=== PATIENT | female | born 1965 | race Caucasian/White ===

== ENCOUNTER 2017-06-25 15:39 | Emergency (ER) | payer BC ==
[2017-06-25] MEDS ORDERED: methylPREDNISolone 125 MG* 2 ML VIAL IV ONE (16:00)
[2017-06-25] MEDS ORDERED: Famotidine IV* 10 MG/ML 2 ML (20 mg) IV ONE (16:00)
[2017-06-25] MEDS ORDERED: diPHENhydraMINE IV* 50 MG/ML 1 ml VIAL (BENADRYL) IV ONE (16:00)
[2017-06-25 18:02] VITALS: BP 151/80
[2017-06-25] MEDS ORDERED: predniSONE TAB* 20 MG PO ONE (18:08)
[2017-06-25] MEDS ORDERED: Famotidine TAB* 20 MG PO ONE (18:09)
--- NOTE | 2017-06-25 18:14 | ED ---
Vignesh Lagunas Rebecca, scribed for Blas Ordonez MD on 06/25/17 at 1605 . Allergic Reaction/Systemic - HPI Summary HPI Summary: Pt is a 52 y/o F who presents to ED c/o allergic reaction s/p wasp sting. Pt was stung on the R elbow and now c/o face and RUE hives. She took 25 mg Benadryl at 1430, [employer]. Denies difficulty breathing or throat tightening. Prior allergic reactions to stings, none of which have involved the airway. - History of Current Complaint Chief Complaint: EDAllergicReaction Time Seen by Provider: 06/25/17 15:58 Hx Obtained From: Patient Onset/Duration: Still Present Severity Currently: Mild Pain Intensity: 2 Pain Scale Used: 0-10 Numeric Character: Swelling, Hives Associated Signs And Symptoms: Negative: Difficulty Breathing, Throat Tightening - Allergies/Home Medications Allergies/Adverse Reactions: Allergies Allergy/AdvReac Type Severity Reaction Status Date / Time Bee Venom Allergy Hives Verified 08/26/16 14:39 Meperidine [From Demerol HCl] Allergy See Comment Verified 08/26/16 14:39 Sulfamethoxazole Allergy See Comment Verified 08/26/16 14:39 w/Trimethoprim [From Bactrim] PMH/Surg Hx/FS Hx/Imm Hx Cardiovascular History: Denies: Hx Coronary Artery Disease Neurological History: Reports: Hx Migraine Infectious Disease History: No Infectious Disease History: Denies: Traveled Outside the [place] in Last 30 Days - Family History Known Family History: Positive: Cardiac Disease, Other - skin CA - Social History Alcohol Use: Occasionally Hx Tobacco Use: No Review of Systems Positive: Other - NEGATIVE: difficulty breahting and throat tightening Positive: Rash - Hives on the RUE and face s/p wasp sting All Other Systems Reviewed And Are Negative: Yes Physical Exam - Summary Physical Exam Summary: General: well-appearing, no pain distress Skin: warm, dry, hives on the face and right arm Head: normal Eyes: EOMI, COOPER ENT: normal, jhony pharynx is open Neck: supple, nontender Respiratory: CTA, breath sounds present Cardiovascular: RRR Musculoskeletal: normal, strength/ROM intact Neurological: normal, sensory/motor intact, A&O x3 Psychological: affect/mood appropriate Triage Information Reviewed: Yes Vital Signs On Initial Exam: Initial Vitals Temp Pulse Resp BP Pulse Ox 98.1 F 75 20 174/111 97 06/25/17 15:40 06/25/17 15:40 06/25/17 15:40 06/25/17 15:40 06/25/17 15:40 Vital Signs Reviewed: Yes Diagnostics - Vital Signs Vital Signs Temp Pulse Resp BP Pulse Ox 06/25/17 15:40 98.1 F 75 20 174/111 97 - Laboratory Lab Statement: Any lab studies that have been ordered have been reviewed, and results considered in the medical decision making process. Re-Evaluation - Re-Evaluation First Eval Re-Evaluation Time: 18:05 Change: Improved Allergic Reaction Course/Dx - Course Course Of Treatment: IMPROVED IN ED. NO AIRWAY INVOLVEMENT. PATIENT HAS EPIPEN AT HOME. DISCHARGE HOME STABLE. CRITICAL CARE TIME LESS THAN 30 MINUTES. - Diagnoses Provider Diagnoses: Allergic reaction to bee sting Discharge - Discharge Plan Condition: Stable Disposition: HOME Prescriptions: Famotidine TAB* [Pepcid 20 MG TAB*] 20 mg PO BID PRN #8 tab PRN Reason: Allergy Symptoms predniSONE TAB* [Deltasone TAB*] 40 mg PO DAILY PRN #8 tab PRN Reason: Allergy Symptoms Patient Education Materials: General Allergic Reaction (ED) Referrals: Clifford Peng MD [Primary Care Provider] - Additional Instructions: FOLLOW UP WITH YOUR DOCTOR. RETURN TO THE EMERGENCY DEPARTMENT FOR ANY WORSENING OF YOUR CONDITION; DIFFICULTY BREATHING OR SWALLOWING OR QUESTIONS OR CONCERNS. The documentation as recorded by the Vignesh muhammad Rebecca accurately reflects the service I personally performed and the decisions made by me, Blas Ordonez MD.
== END 2017-06-25 18:30 | disposition home or self-care (01) ==
LOC: ED 15:39
DX: T63.441A Toxic effect of venom of bees, accidental (unintentional), initial encounter (principal); Y92.9 Unspecified place or not applicable; R21 Rash and other nonspecific skin eruption
CPT/HCPCS: 96374; 96375; 99282; A9270-GY; J1200; J2930; J7512